=== PATIENT | male | born 1960 | race African-American/Black ===

== ENCOUNTER 2020-08-02 10:37 | Inpatient (IN) | payer MEDICAID, OTHER ==
[~2020-08-02] VITALS: Ht 172.7 cm; Wt 77.3 kg
[2020-08-02] MEDS ORDERED: SODIUM CHLORIDE 0.9% 500 ML IV ONE (11:15)
[2020-08-02 11:21] LABS: Basophils # (auto) 0.1 10 ^3/uL (0-0.2); Hemoglobin 7.9 g/dL (13.5-17.5); Monocytes # (auto) 0.7 10 ^3/uL (0-1.3); Monocytes % (auto) 8.5 % (0.0-12.0)
[2020-08-02 11:23] LABS: Basophils % (auto) 0.8 % (0.0-2.0); Eosinophils # (auto) 0.2 10 ^3/uL (0-0.8); Eosinophils % (auto) 2.1 % (0.0-7.0); Hematocrit 23.9 % (41.0-53.0); Lymphocytes # (auto) 1.2 10 ^3/uL (0.4-5.4); Lymphocytes % (auto) 15.7 % (10.0-50.0); Mean Corpuscular Hemoglobin 26.7 pg (28.0-32.0); Mean Corpuscular Hgb Conc. 32.9 g/dL (32.0-36.0); Mean Corpuscular Volume 81.2 fL (80.0-100.0); Neutrophils # (auto) 5.8 10 ^3/uL (1.6-8.6); Neutrophils % (auto) 72.9 % (37.0-80.0); Platelet Count (auto) 258 10^3/uL (140-450); Red Blood Cells 2.95 10^6/uL (4.5-5.90); Red Cell Distribution Width 16.3 % (11.8-14.3); White Blood Cell 7.9 10^3/uL (4.4-10.8)
[2020-08-02 11:42] LABS: Alanine Aminotransferase 44 U/L (16-61); Albumin 2.4 g/dL (3.4-5.0); Anion Gap 7 (5-15); Blood Urea Nitrogen 47 mg/dL (7-18); Calcium 7.2 mg/dL (8.5-10.1); Carbon Dioxide 24 mmol/L (21-32); Chloride 109 mmol/L (98-107); Glucose 157 mg/dL (74-106); Magnesium 1.9 mg/dL (1.6-2.6); Potassium 4.9 mmol/L (3.5-5.1); Sodium 140 mmol/L (136-145)
[2020-08-02 11:48] LABS: Alkaline Phosphatase 88 U/L (45-117); Aspartate Aminotransferase 28 U/L (15-37); BUN/Creatinine Ratio 14.2; Bilirubin, Total 0.2 mg/dL (0.2-1.0); GFR African American 25 mL/min; GFR Non-African American 20 mL/min; Total Protein 7.7 g/dL (6.4-8.2)
[2020-08-02 12:41] LABS: Urine Bacteria NONE SEEN /hpf (None Seen); Urine Blood Negative /uL (Negative); Urine Hyaline Cast FEW /lpf (0 - 2); Urine WBC 2 /hpf (0 - 3)
[2020-08-02] MEDS ORDERED: NITROGLYCERIN 0.4 MG SL TAB SL PRN (14:15)
[2020-08-02] MEDS ORDERED: MORPHINE SULF INJ 2 MG/ML SYRINGE 1ML IV PRN (14:15)
[2020-08-02] MEDS ORDERED: BUMETANIDE 2.5mg/10ml (0.25 mg/ml) INJ IV ONE (14:15)
[2020-08-02] MEDS ORDERED: metOLazone 5 MG TAB PO ONE (14:15)
[2020-08-02] MEDS ORDERED: DEXTROSE (50%) 50ML SYRG IV PRN (14:15)
[2020-08-02] MEDS: InsuLIN REG 1unit/0.01ml Soln (100units/ml) SC SCH ×2 (17:00→21:20)
[2020-08-02] MEDS: ACCU-CHEK COMFORT CURVE STRIP VI SCH ×2 (17:16→21:20)
[2020-08-02] MEDS: METOPROLOL TARTRATE 25 MG TAB PO SCH ×2 (21:20→22:20)
[2020-08-03 00:14] VITALS: BP 129/72
[2020-08-03 05:00] VITALS: BP 145/79
[2020-08-03] MEDS: ACCU-CHEK COMFORT CURVE STRIP VI SCH ×4 (06:23→21:35)
[2020-08-03] MEDS: InsuLIN REG 1unit/0.01ml Soln (100units/ml) SC SCH ×4 (06:23→21:35)
[2020-08-03 08:40] VITALS: BP 143/88
[2020-08-03] MEDS: metOLazone 5 MG TAB PO SCH (10:00)
[2020-08-03] MEDS: BUMETANIDE 2.5mg/10ml (0.25 mg/ml) INJ IV SCH (10:00)
[2020-08-03 10:08] LABS: Albumin 2.4 g/dL (3.4-5.0); Calcium 7.2 mg/dL (8.5-10.1); Potassium 4.4 mmol/L (3.5-5.1)
[2020-08-03] MEDS: METOPROLOL TARTRATE 25 MG TAB PO SCH ×2 (10:08→22:07)
[2020-08-03 10:10] LABS: Basophils # (auto) 0.1 10 ^3/uL (0-0.2); Eosinophils # (auto) 0.2 10 ^3/uL (0-0.8); Lymphocytes % (auto) 13.9 % (10.0-50.0); Platelet Count (auto) 251 10^3/uL (140-450)
[2020-08-03 10:13] LABS: Eosinophils % (auto) 2.2 % (0.0-7.0); Hematocrit 24.3 % (41.0-53.0); Mean Corpuscular Hemoglobin 26.8 pg (28.0-32.0); Mean Corpuscular Hgb Conc. 33.1 g/dL (32.0-36.0); Monocytes # (auto) 0.7 10 ^3/uL (0-1.3); Monocytes % (auto) 9.1 % (0.0-12.0); Neutrophils # (auto) 5.5 10 ^3/uL (1.6-8.6); Neutrophils % (auto) 73.8 % (37.0-80.0); Red Cell Distribution Width 16.5 % (11.8-14.3); White Blood Cell 7.4 10^3/uL (4.4-10.8)
[2020-08-03 10:14] LABS: BUN/Creatinine Ratio 14.5; Bilirubin, Total 0.2 mg/dL (0.2-1.0); Total Protein 7.7 g/dL (6.4-8.2)
[2020-08-03 12:14] LABS: Free T3 1.56 pg/mL (2.3-4.2); Free T4 (Free Thyroxine) 1.03 ng/dL (0.89-1.76)
[2020-08-03 12:16] LABS: Alcohol, Urine < 3.0 mg/dL (0-10); Amphetamine Screen, Urine NEGATIVE (NEGATIVE); Barbiturate Scree,Urine NEGATIVE (NEGATIVE); Benzodiazephine Screen, Urine NEGATIVE (NEGATIVE); Cannabinoid Screen, Urine NEGATIVE (NEGATIVE); Cocaine Screen, Urine NEGATIVE (NEGATIVE); Opiate Scree,Urine NEGATIVE (NEGATIVE); Phencyclidine Screen, Urine NEGATIVE (NEGATIVE)
[2020-08-03 13:00] VITALS: BP 148/98
[2020-08-03 17:13] VITALS: BP 146/89
[2020-08-03 23:23] VITALS: BP 146/87
[2020-08-04 05:56] VITALS: BP 153/65
[2020-08-04] MEDS: InsuLIN REG 1unit/0.01ml Soln (100units/ml) SC SCH ×4 (06:20→21:23)
[2020-08-04] MEDS: ACCU-CHEK COMFORT CURVE STRIP VI SCH ×4 (06:20→21:22)
[2020-08-04 08:49] VITALS: BP 153/92
[2020-08-04 09:26] LABS: Albumin 2.3 g/dL (3.4-5.0); Calcium 7.2 mg/dL (8.5-10.1); Potassium 4.7 mmol/L (3.5-5.1)
[2020-08-04 09:31] LABS: BUN/Creatinine Ratio 13.3; Bilirubin, Total 0.3 mg/dL (0.2-1.0); Total Protein 7.5 g/dL (6.4-8.2)
[2020-08-04] MEDS: BUMETANIDE 2.5mg/10ml (0.25 mg/ml) INJ IV SCH (10:28)
[2020-08-04] MEDS: METOPROLOL TARTRATE 25 MG TAB PO SCH ×2 (10:29→21:18)
[2020-08-04] MEDS: metOLazone 5 MG TAB PO SCH (10:29)
[2020-08-04 12:33] VITALS: BP 155/92
[2020-08-04] MEDS ORDERED: KAY60LQ PO (13:29)
[2020-08-04] MEDS ORDERED: ISOS60TA24 PO (13:29)
[2020-08-04] MEDS ORDERED: FER325T PO (13:29)
[2020-08-04] MEDS ORDERED: SERT-160 PO (13:29)
[2020-08-04] MEDS ORDERED: HYDR-4298 PO (13:29)
[2020-08-04] MEDS ORDERED: BENA40TA8 PO (13:29)
[2020-08-04] MEDS ORDERED: ATOR-47 PO (13:29)
[2020-08-04] MEDS ORDERED: CALC500C3 PO (13:29)
[2020-08-04] MEDS ORDERED: DULA1INJ SC (13:29)
[2020-08-04] MEDS ORDERED: ASPI-231 PO (13:29)
[2020-08-04] MEDS ORDERED: CHOL20007 PO (13:29)
[2020-08-04] MEDS ORDERED: BUME2TAB5 PO (13:29)
[2020-08-04] MEDS ORDERED: MAGN400T40 PO (13:29)
[2020-08-04] MEDS ORDERED: NIFE1TAB31 PO (13:29)
[2020-08-04] MEDS ORDERED: CARV25TA55 PO (13:29)
[2020-08-04] MEDS ORDERED: SODI650T PO (13:29)
[2020-08-04] MEDS ORDERED: SODIPOW32 PO (13:29)
[2020-08-04 17:29] VITALS: BP 161/92
[2020-08-04 22:00] VITALS: BP 151/85
[2020-08-05 05:00] VITALS: BP 143/80
[2020-08-05] MEDS: InsuLIN REG 1unit/0.01ml Soln (100units/ml) SC SCH ×4 (06:30→22:00)
[2020-08-05] MEDS: LEVOTHYROXINE SODIUM 88 MCG TAB PO SCH (06:30)
[2020-08-05] MEDS: ACCU-CHEK COMFORT CURVE STRIP VI SCH ×4 (06:30→22:23)
[2020-08-05 09:00] VITALS: BP 148/81
[2020-08-05] MEDS: BUMETANIDE 2.5mg/10ml (0.25 mg/ml) INJ IV SCH (10:19)
[2020-08-05] MEDS: metOLazone 5 MG TAB PO SCH (10:20)
[2020-08-05] MEDS: METOPROLOL TARTRATE 25 MG TAB PO SCH ×2 (10:20→22:23)
[2020-08-05 11:06] LABS: Urine Bacteria NONE SEEN /hpf (None Seen); Urine Blood TRACE /uL (Negative); Urine Specific Gravity 1.009 (1.001-1.035); Urine WBC <1 /hpf (0 - 3)
[2020-08-05 11:33] LABS: Protein, Urine 78.3 mg/dL (0.0-11.9)
[2020-08-05 13:00] VITALS: BP 154/90
[2020-08-05 17:15] VITALS: BP 159/96
[2020-08-05 22:00] VITALS: BP 157/88
[2020-08-06 05:00] VITALS: BP 140/80
[2020-08-06] MEDS: InsuLIN REG 1unit/0.01ml Soln (100units/ml) SC SCH ×2 (06:12→11:30)
[2020-08-06] MEDS: LEVOTHYROXINE SODIUM 88 MCG TAB PO SCH (06:12)
[2020-08-06] MEDS: ACCU-CHEK COMFORT CURVE STRIP VI SCH ×2 (06:12→12:33)
[2020-08-06 08:31] LABS: Calcium 7.6 mg/dL (8.5-10.1); Potassium 4.7 mmol/L (3.5-5.1)
[2020-08-06 08:33] LABS: BUN/Creatinine Ratio 17.8
[2020-08-06 09:00] VITALS: BP 151/82
[2020-08-06] MEDS: METOPROLOL TARTRATE 25 MG TAB PO SCH (10:49)
[2020-08-06] MEDS: BUMETANIDE 2.5mg/10ml (0.25 mg/ml) INJ IV SCH (10:49)
[2020-08-06] MEDS: metOLazone 5 MG TAB PO SCH (10:50)
[2020-08-06 13:00] VITALS: BP 151/86
[2020-08-06 17:04] VITALS: BP 142/80
[2020-08-07 14:58] LABS: Hepatitis A Ab IgM Negative
[2020-08-07 14:59] LABS: Hepatitis B Surface Antigen Negative (Negative)
[2020-08-07 15:00] LABS: Hepatitis B Core IgM Negative; Hepatitis C Antibody Negative (Negative)
== END 2020-08-06 18:38 | disposition home or self-care (01) | DRG 194 ==
LOC: ER 10:37 → EDBD 10:37 → TELE 14:02 → TELE-CENTR 20:38
PROVIDERS: ADMIT Nurse Practitioner Acute Care; ATTEND Family Medicine
DX: I13.0 Hypertensive heart and chronic kidney disease with heart failure and stage 1 through stage 4 chronic kidney disease, or unspecified chronic kidney disease (principal); N17.9 Acute kidney failure, unspecified; E44.0 Moderate protein-calorie malnutrition; E11.22 Type 2 diabetes mellitus with diabetic chronic kidney disease; N18.4 Chronic kidney disease, stage 4 (severe); I50.23 Acute on chronic systolic (congestive) heart failure; Z20.822 Contact with and (suspected) exposure to COVID-19; D63.8 Anemia in other chronic diseases classified elsewhere; E03.9 Hypothyroidism, unspecified; R09.89 Other specified symptoms and signs involving the circulatory and respiratory systems; E78.5 Hyperlipidemia, unspecified; Z68.26 Body mass index [BMI] 26.0-26.9, adult; Z79.899 Other long term (current) drug therapy; Z95.810 Presence of automatic (implantable) cardiac defibrillator; Z79.4 Long term (current) use of insulin; Z82.49 Family history of ischemic heart disease and other diseases of the circulatory system; Z83.3 Family history of diabetes mellitus
CPT/HCPCS: 36415; 70450; 71045; 76775; 80048; 80053; 80074; 80307; 81001; 82570; 82962; 83036; 83735; 83880; 84156; 84439; 84443; 84481; 84484; 85025; 86703; 87081; 87426; 93005; 93306; 96360; 97110; 97116; 97163; 97530; G0378

== ENCOUNTER 2020-08-06 19:01 | Inpatient (IN) | payer MEDICAID ==
[~2020-08-06] VITALS: Ht 175.3 cm; Wt 74.1 kg
[~2020-08-06 19:01] MED LIST: ASPI1TAB20 PO; ATOR-47 PO; BENA40TA8 PO; BUME2TAB5 PO; CALC500C3 PO; CARV25TA55 PO; CHOL20007 PO; DULA1INJ SC; FER325T PO; HYDR-4298 PO; ISOS60TA24 PO; KAY60LQ PO; MAGN400T40 PO; NIFE1TAB31 PO; SERT-160 PO; SODI650T PO; SODIPOW32 PO
[2020-08-06] MEDS ORDERED: NALOXONE HCL 0.4 MG/ML VIAL ONE (19:11)
[2020-08-06] MEDS ORDERED: NALOXONE HCL 1MG/ML 2ML SYRINGE ONE (19:11)
[2020-08-06] MEDS ORDERED: NALOXONE HCL 1MG/ML 2ML SYRINGE IV ONE (19:30)
[2020-08-06 19:56] LABS: Basophils # (auto) 0.1 10 ^3/uL (0-0.2); Basophils % (auto) 0.9 % (0.0-2.0); Eosinophils # (auto) 0.3 10 ^3/uL (0-0.8); Eosinophils % (auto) 3.3 % (0.0-7.0); Hematocrit 27.2 % (41.0-53.0); Lymphocytes # (auto) 1.7 10 ^3/uL (0.4-5.4); Lymphocytes % (auto) 20.4 % (10.0-50.0); Mean Corpuscular Hemoglobin 26.8 pg (28.0-32.0); Mean Corpuscular Volume 81.1 fL (80.0-100.0); Monocytes # (auto) 0.7 10 ^3/uL (0-1.3); Neutrophils # (auto) 5.4 10 ^3/uL (1.6-8.6); Neutrophils % (auto) 66.4 % (37.0-80.0); Red Blood Cells 3.35 10^6/uL (4.5-5.90); Red Cell Distribution Width 16.1 % (11.8-14.3); White Blood Cell 8.1 10^3/uL (4.4-10.8)
[2020-08-06 20:11] LABS: INR 1.02 (0.9-1.15)
[2020-08-06 20:12] LABS: Albumin 2.5 g/dL (3.4-5.0); Anion Gap 6 (5-15); Blood Urea Nitrogen 45 mg/dL (7-18); Calcium 7.2 mg/dL (8.5-10.1); Carbon Dioxide 28 mmol/L (21-32); Chloride 102 mmol/L (98-107); Glucose 130 mg/dL (74-106); Lipase 108 U/L (73-393); Magnesium 1.8 mg/dL (1.6-2.6); Sodium 136 mmol/L (136-145)
[2020-08-06 20:19] LABS: Alanine Aminotransferase 30 U/L (16-61); Alkaline Phosphatase 88 U/L (45-117); Aspartate Aminotransferase 25 U/L (15-37); Bilirubin, Total 0.2 mg/dL (0.2-1.0); GFR African American 30 mL/min; GFR Non-African American 25 mL/min; Phosphorus 3.8 mg/dL (2.5-4.90); Total Protein 8.3 g/dL (6.4-8.2)
[2020-08-06] MEDS ORDERED: FUROSEMIDE 20 MG/2 ML VIAL IV ONE (22:45)
[2020-08-06] MEDS ORDERED: ACETAMINOPHEN 325 MG TAB PO PRN (23:15)
[2020-08-06] MEDS ORDERED: ONDANSETRON HCL 4 MG/2 ML VIAL IV PRN (23:15)
[2020-08-06] MEDS ORDERED: NITROGLYCERIN 0.4 MG SL TAB SL PRN (23:15)
[2020-08-06] MEDS ORDERED: DEXTROSE (50%) 50ML SYRG IV PRN (23:15)
[2020-08-06] MEDS ORDERED: MORPHINE SULFATE INJECTION 2 MG/ML SYRG IV PRN (23:15)
[2020-08-06 23:59] LABS: Urine Bacteria FEW /hpf (None Seen); Urine Blood TRACE /uL (Negative); Urine Mucus FEW (None Seen); Urine WBC 1 /hpf (0 - 3)
[2020-08-07] VITALS (8 sets, daily range): BP systolic 99–164; BP diastolic 55–94
[2020-08-07 00:14] LABS: Alcohol, Urine < 3.0 mg/dL (0-10); Amphetamine Screen, Urine NEGATIVE (NEGATIVE); Barbiturate Scree,Urine NEGATIVE (NEGATIVE); Benzodiazephine Screen, Urine NEGATIVE (NEGATIVE); Cannabinoid Screen, Urine NEGATIVE (NEGATIVE); Cocaine Screen, Urine NEGATIVE (NEGATIVE); Opiate Scree,Urine NEGATIVE (NEGATIVE); Phencyclidine Screen, Urine NEGATIVE (NEGATIVE)
[2020-08-07] MEDS ORDERED: cloNIDine HCL 0.1 MG TAB PO PRN (02:30)
[2020-08-07 05:51] LABS: Basophils # (auto) 0.1 10 ^3/uL (0-0.2); Basophils % (auto) 1.2 % (0.0-2.0); Eosinophils # (auto) 0.2 10 ^3/uL (0-0.8); Hematocrit 26.8 % (41.0-53.0); Lymphocytes # (auto) 1.1 10 ^3/uL (0.4-5.4); Lymphocytes % (auto) 19.5 % (10.0-50.0); Mean Corpuscular Hemoglobin 27.1 pg (28.0-32.0); Mean Corpuscular Hgb Conc. 33.5 g/dL (32.0-36.0); Mean Corpuscular Volume 80.8 fL (80.0-100.0); Monocytes # (auto) 0.6 10 ^3/uL (0-1.3); Monocytes % (auto) 10.5 % (0.0-12.0); Neutrophils # (auto) 3.7 10 ^3/uL (1.6-8.6); Neutrophils % (auto) 65.8 % (37.0-80.0); Nucleated Red Blood Cells % 0.1 %; Red Blood Cells 3.32 10^6/uL (4.5-5.90); Red Cell Distribution Width 16.1 % (11.8-14.3); White Blood Cell 5.6 10^3/uL (4.4-10.8)
[2020-08-07] MEDS: SODIUM BICARBONATE 650 MG TAB PO SCH ×3 (06:00→21:39)
[2020-08-07 06:10] LABS: Albumin 2.3 g/dL (3.4-5.0); Calcium 7.3 mg/dL (8.5-10.1); Potassium 4.2 mmol/L (3.5-5.1)
[2020-08-07 06:16] LABS: BUN/Creatinine Ratio 17.8; Bilirubin, Total 0.3 mg/dL (0.2-1.0); Total Protein 7.4 g/dL (6.4-8.2)
[2020-08-07] MEDS: InsuLIN REG 1unit/0.01ml Soln (100units/ml) SC SCH ×4 (07:00→22:08)
[2020-08-07] MEDS: ACCU-CHEK COMFORT CURVE STRIP VI SCH ×4 (07:10→22:00)
[2020-08-07] MEDS: ISOSORBIDE MONONITRATE ER 60 MG TAB PO SCH (09:58)
[2020-08-07] MEDS: ASPirin 81 mg TAB PO SCH (09:58)
[2020-08-07] MEDS: FUROSEMIDE 40 MG TAB PO SCH (09:58)
[2020-08-07] MEDS: PANTOPRAZOLE 40 MG TAB PO SCH (09:58)
[2020-08-07] MEDS: CARVEDILOL 12.5 MG TAB PO SCH ×2 (09:59→21:40)
[2020-08-07] MEDS: ATORVASTATIN 20 MG TAB PO SCH (21:39)
[2020-08-08 05:09] VITALS: BP_SYST 127
[2020-08-08] MEDS: ACCU-CHEK COMFORT CURVE STRIP VI SCH ×4 (06:31→21:37)
[2020-08-08] MEDS: InsuLIN REG 1unit/0.01ml Soln (100units/ml) SC SCH ×4 (06:31→21:37)
[2020-08-08] MEDS: SODIUM BICARBONATE 650 MG TAB PO SCH ×3 (06:32→21:35)
[2020-08-08 08:30] VITALS: BP 124/76
[2020-08-08] MEDS: FUROSEMIDE 40 MG TAB PO SCH (09:04)
[2020-08-08] MEDS: CARVEDILOL 12.5 MG TAB PO SCH ×2 (09:04→21:36)
[2020-08-08] MEDS: PANTOPRAZOLE 40 MG TAB PO SCH (09:04)
[2020-08-08] MEDS: ASPirin 81 mg TAB PO SCH (09:04)
[2020-08-08] MEDS: ISOSORBIDE MONONITRATE ER 60 MG TAB PO SCH (09:05)
[2020-08-08 09:48] VITALS: BP 124/76
[2020-08-08 12:49] VITALS: BP 133/79
[2020-08-08 17:03] VITALS: BP 101/62
[2020-08-08] MEDS: ATORVASTATIN 20 MG TAB PO SCH (21:36)
[2020-08-08 22:00] VITALS: BP 103/56
[2020-08-09 05:00] VITALS: BP 121/70
[2020-08-09] MEDS: InsuLIN REG 1unit/0.01ml Soln (100units/ml) SC SCH ×4 (05:20→22:17)
[2020-08-09] MEDS: ACCU-CHEK COMFORT CURVE STRIP VI SCH ×4 (05:21→21:22)
[2020-08-09] MEDS: SODIUM BICARBONATE 650 MG TAB PO SCH ×3 (05:22→21:21)
[2020-08-09 08:00] VITALS: BP 134/79
[2020-08-09 09:08] VITALS: BP 134/79
[2020-08-09] MEDS: FUROSEMIDE 40 MG TAB PO SCH (09:39)
[2020-08-09] MEDS: ISOSORBIDE MONONITRATE ER 60 MG TAB PO SCH (09:40)
[2020-08-09] MEDS: CARVEDILOL 12.5 MG TAB PO SCH ×2 (09:40→21:22)
[2020-08-09] MEDS: ASPirin 81 mg TAB PO SCH (09:40)
[2020-08-09 12:55] VITALS: BP 141/85
[2020-08-09 16:45] VITALS: BP 114/71
[2020-08-09] MEDS: ATORVASTATIN 20 MG TAB PO SCH (21:21)
[2020-08-09 22:00] VITALS: BP 123/72
[2020-08-09] MEDS ORDERED: LORazepam 2MG/ML-1ML VIAL IV PRN (22:00)
[2020-08-10 05:00] VITALS: BP 129/75
[2020-08-10] MEDS: SODIUM BICARBONATE 650 MG TAB PO SCH ×3 (06:00→23:10)
[2020-08-10] MEDS: ACCU-CHEK COMFORT CURVE STRIP VI SCH ×4 (06:01→23:12)
[2020-08-10] MEDS: InsuLIN REG 1unit/0.01ml Soln (100units/ml) SC SCH ×4 (06:01→23:12)
[2020-08-10] MEDS: ISOSORBIDE MONONITRATE ER 60 MG TAB PO SCH (09:03)
[2020-08-10] MEDS: CARVEDILOL 12.5 MG TAB PO SCH ×2 (09:03→23:11)
[2020-08-10] MEDS: FUROSEMIDE 40 MG TAB PO SCH (09:03)
[2020-08-10] MEDS: ASPirin 81 mg TAB PO SCH (09:03)
[2020-08-10 09:06] VITALS: BP 150/81
[2020-08-10 12:02] LABS: Folate (Folic Acid) 11.97 ng/mL (5.38-24)
[2020-08-10 13:00] VITALS: BP 131/76
[2020-08-10 16:30] VITALS: BP 129/73
[2020-08-10 22:00] VITALS: BP 139/76
[2020-08-10] MEDS: ATORVASTATIN 20 MG TAB PO SCH (23:11)
[2020-08-11 05:00] VITALS: BP 144/82
[2020-08-11] MEDS: InsuLIN REG 1unit/0.01ml Soln (100units/ml) SC SCH ×2 (06:07→11:41)
[2020-08-11] MEDS: SODIUM BICARBONATE 650 MG TAB PO SCH (06:44)
[2020-08-11] MEDS: ACCU-CHEK COMFORT CURVE STRIP VI SCH ×2 (06:52→11:39)
[2020-08-11 08:40] VITALS: BP 138/69
[2020-08-11] MEDS: FUROSEMIDE 40 MG TAB PO SCH (09:58)
[2020-08-11] MEDS: ASPirin 81 mg TAB PO SCH (09:58)
[2020-08-11] MEDS: CARVEDILOL 12.5 MG TAB PO SCH (10:07)
[2020-08-11] MEDS: ISOSORBIDE MONONITRATE ER 60 MG TAB PO SCH (10:09)
[2020-08-11 10:24] VITALS: BP 138/69
[2020-08-11 10:30] VITALS: BP 138/69
[2020-08-11 12:39] VITALS: BP 153/78
== END 2020-08-11 13:00 | disposition home or self-care (01) | DRG 194 ==
LOC: ER 19:04 → TELE 23:12 → TELE-WESTW 23:52
PROVIDERS: ADMIT Nurse Practitioner; ATTEND Family Medicine
DX: I13.0 Hypertensive heart and chronic kidney disease with heart failure and stage 1 through stage 4 chronic kidney disease, or unspecified chronic kidney disease (principal); G93.41 Metabolic encephalopathy; E44.0 Moderate protein-calorie malnutrition; E11.22 Type 2 diabetes mellitus with diabetic chronic kidney disease; N18.4 Chronic kidney disease, stage 4 (severe); G40.209 Localization-related (focal) (partial) symptomatic epilepsy and epileptic syndromes with complex partial seizures, not intractable, without status epilepticus; D63.8 Anemia in other chronic diseases classified elsewhere; E03.9 Hypothyroidism, unspecified; E78.5 Hyperlipidemia, unspecified; Z79.4 Long term (current) use of insulin; Z82.49 Family history of ischemic heart disease and other diseases of the circulatory system; Z83.3 Family history of diabetes mellitus; Z95.810 Presence of automatic (implantable) cardiac defibrillator; I50.23 Acute on chronic systolic (congestive) heart failure; Z20.822 Contact with and (suspected) exposure to COVID-19
CPT/HCPCS: 36415; 70450; 71045; 80053; 80307; 80320; 81001; 82607; 82746; 82962; 83605; 83690; 83735; 83880; 84100; 84484; 85025; 85610; 87040; 87081; 87426; 93005; 95819; 99291; G0378; J1815

== ENCOUNTER 2020-08-15 10:27 | Inpatient (IN) | payer MEDICAID ==
[~2020-08-15] VITALS: Ht 170.2 cm; Wt 67.3 kg
[2020-08-15] MEDS ORDERED: SODIUM CHLORIDE 0.9% 1,000 ML IV ONE (10:45)
[2020-08-15 11:38] LABS: Basophils # (auto) 0.1 10 ^3/uL (0-0.2); Hemoglobin 10.8 g/dL (13.5-17.5); Lymphocytes # (auto) 0.8 10 ^3/uL (0.4-5.4); Monocytes # (auto) 0.6 10 ^3/uL (0-1.3); Neutrophils # (auto) 8.4 10 ^3/uL (1.6-8.6); Red Cell Distribution Width 16.4 % (11.8-14.3); White Blood Cell 9.9 10^3/uL (4.4-10.8)
[2020-08-15 11:40] LABS: Basophils % (auto) 0.9 % (0.0-2.0); Eosinophils # (auto) 0 10 ^3/uL (0-0.8); Eosinophils % (auto) 0.4 % (0.0-7.0); Hematocrit 34.1 % (41.0-53.0); Mean Corpuscular Hemoglobin 26.2 pg (28.0-32.0); Mean Corpuscular Hgb Conc. 31.7 g/dL (32.0-36.0); Mean Corpuscular Volume 82.7 fL (80.0-100.0); Monocytes % (auto) 6.3 % (0.0-12.0); Neutrophils % (auto) 84.4 % (37.0-80.0); Nucleated Red Blood Cells % 0.1 %; Red Blood Cells 4.12 10^6/uL (4.5-5.90)
[2020-08-15 11:51] LABS: Albumin 3.1 g/dL (3.4-5.0); Anion Gap 7 (5-15); Calcium 8.7 mg/dL (8.5-10.1); Carbon Dioxide 33 mmol/L (21-32); Chloride 101 mmol/L (98-107); Glucose 223 mg/dL (74-106); Sodium 141 mmol/L (136-145)
[2020-08-15 11:57] LABS: Alanine Aminotransferase 34 U/L (16-61); Alkaline Phosphatase 92 U/L (45-117); Aspartate Aminotransferase 31 U/L (15-37); BUN/Creatinine Ratio 23.4; Bilirubin, Total 0.3 mg/dL (0.2-1.0); GFR African American 21 mL/min; GFR Non-African American 17 mL/min; Total Protein 9.4 g/dL (6.4-8.2)
[2020-08-15 12:04] LABS: Blood Urea Nitrogen 90 mg/dL (7-18)
[2020-08-15] MEDS ORDERED: cloNIDine HCL 0.1 MG TAB PO ONE (13:15)
[2020-08-15] MEDS ORDERED: amLODIPine BESYLATE 5 MG TAB PO ONE (14:15)
[2020-08-15] MEDS ORDERED: ALBUMIN 5% 250 ML IV ONE (14:15)
[2020-08-15 14:43] LABS: Urine Bacteria NONE SEEN /hpf (None Seen); Urine Blood Negative /uL (Negative); Urine Specific Gravity 1.011 (1.001-1.035); Urine WBC <1 /hpf (0 - 3)
[2020-08-15] MEDS ORDERED: ONDANSETRON HCL 4 MG/2 ML VIAL IV PRN (15:00)
[2020-08-15] MEDS ORDERED: ACETAMINOPHEN 500 MG TAB PO PRN (15:00)
[2020-08-15] MEDS ORDERED: HYDROcodone-ACET 5/325MG TAB PO PRN (15:00)
[2020-08-15] MEDS ORDERED: MORPHINE SULFATE INJECTION 2 MG/ML SYRG IV PRN ×2 (15:00)
[2020-08-15] MEDS ORDERED: DEXTROSE (50%) 50ML SYRG IV PRN (15:00)
[2020-08-15] MEDS ORDERED: NITROGLYCERIN 0.4 MG SL TAB SL PRN (15:00)
[2020-08-15] MEDS ORDERED: hydrALAZINE HCL 20 MG/ML VL IV PRN (15:15)
[2020-08-15] MEDS: SOD CHL 0.45% 1,000 ML IV SCH (16:13)
[2020-08-15] MEDS: ACCU-CHEK COMFORT CURVE STRIP VI SCH ×2 (17:28→22:28)
[2020-08-15 17:37] LABS: Phosphorus 4.3 mg/dL (2.5-4.90); Uric Acid 10.1 mg/dL (3.5-7.2)
[2020-08-15] MEDS: InsuLIN REG 1unit/0.01ml Soln (100units/ml) SC SCH ×2 (18:05→22:31)
[2020-08-15] MEDS: ATORVASTATIN 20 MG TAB PO SCH (22:32)
[2020-08-15] MEDS: CARVEDILOL 12.5 MG TAB PO SCH (22:33)
[2020-08-15 23:30] VITALS: BP 125/72
[2020-08-15 23:41] VITALS: BP 139/78
[2020-08-16] MEDS: SOD CHL 0.45% 1,000 ML IV SCH ×2 (04:20→21:18)
[2020-08-16 05:38] VITALS: BP 148/82
[2020-08-16] MEDS: InsuLIN REG 1unit/0.01ml Soln (100units/ml) SC SCH ×4 (06:07→21:42)
[2020-08-16] MEDS: ACCU-CHEK COMFORT CURVE STRIP VI SCH ×4 (06:07→21:18)
[2020-08-16 06:23] LABS: Basophils # (auto) 0 10 ^3/uL (0-0.2); Basophils % (auto) 0.6 % (0.0-2.0); Eosinophils # (auto) 0.1 10 ^3/uL (0-0.8); Eosinophils % (auto) 1.2 % (0.0-7.0); Hematocrit 31.3 % (41.0-53.0); Hemoglobin 10.1 g/dL (13.5-17.5); Lymphocytes % (auto) 13.1 % (10.0-50.0); Mean Corpuscular Hemoglobin 26.6 pg (28.0-32.0); Mean Corpuscular Hgb Conc. 32.5 g/dL (32.0-36.0); Mean Corpuscular Volume 81.8 fL (80.0-100.0); Monocytes # (auto) 0.6 10 ^3/uL (0-1.3); Monocytes % (auto) 8.1 % (0.0-12.0); Neutrophils # (auto) 5.7 10 ^3/uL (1.6-8.6); Red Blood Cells 3.82 10^6/uL (4.5-5.90); Red Cell Distribution Width 16.3 % (11.8-14.3); White Blood Cell 7.4 10^3/uL (4.4-10.8)
[2020-08-16 06:43] LABS: Potassium 3.8 mmol/L (3.5-5.1)
[2020-08-16 06:53] LABS: Albumin 3.1 g/dL (3.4-5.0); BUN/Creatinine Ratio 24.9; Bilirubin, Total 0.6 mg/dL (0.2-1.0); Calcium 8.6 mg/dL (8.5-10.1); Total Protein 8.7 g/dL (6.4-8.2)
[2020-08-16 08:30] VITALS: BP 135/69
[2020-08-16] MEDS: FERROUS SULFATE 325mg EC TAB PO SCH (09:09)
[2020-08-16] MEDS: ASPirin-EC 81 mg tab PO SCH (09:09)
[2020-08-16] MEDS: CARVEDILOL 12.5 MG TAB PO SCH ×2 (09:10→21:22)
[2020-08-16] MEDS: NIFEdipine ER 30 MG TAB PO SCH (09:10)
[2020-08-16] MEDS ORDERED: FAMOTIDINE 20 MG TAB PO SCH (10:00)
[2020-08-16 12:56] VITALS: BP 142/79
[2020-08-16 17:00] VITALS: BP 129/69
[2020-08-16] MEDS: ATORVASTATIN 20 MG TAB PO SCH (21:18)
[2020-08-16 22:00] VITALS: BP 138/72
[2020-08-17] MEDS: InsuLIN REG 1unit/0.01ml Soln (100units/ml) SC SCH ×4 (05:50→21:25)
[2020-08-17] MEDS: SOD CHL 0.45% 1,000 ML IV SCH ×2 (05:50→19:13)
[2020-08-17] MEDS: ACCU-CHEK COMFORT CURVE STRIP VI SCH ×4 (05:51→21:15)
[2020-08-17 06:20] LABS: BUN/Creatinine Ratio 25.8; Calcium 8.1 mg/dL (8.5-10.1); Potassium 3.7 mmol/L (3.5-5.1)
[2020-08-17 09:00] VITALS: BP 136/73
[2020-08-17] MEDS: CARVEDILOL 12.5 MG TAB PO SCH ×2 (10:36→21:14)
[2020-08-17] MEDS: ASPirin-EC 81 mg tab PO SCH (10:36)
[2020-08-17] MEDS: NIFEdipine ER 30 MG TAB PO SCH (10:37)
[2020-08-17] MEDS: FERROUS SULFATE 325mg EC TAB PO SCH (10:38)
[2020-08-17 13:00] VITALS: BP 142/79
[2020-08-17 17:00] VITALS: BP 156/74
[2020-08-17] MEDS: ATORVASTATIN 20 MG TAB PO SCH (21:15)
[2020-08-17 21:57] VITALS: BP 129/64
[2020-08-18 05:00] VITALS: BP 134/69
[2020-08-18] MEDS: InsuLIN REG 1unit/0.01ml Soln (100units/ml) SC SCH ×4 (05:56→22:00)
[2020-08-18] MEDS: ACCU-CHEK COMFORT CURVE STRIP VI SCH ×4 (05:57→22:11)
[2020-08-18 08:00] VITALS: BP 113/64
[2020-08-18] MEDS: FERROUS SULFATE 325mg EC TAB PO SCH (10:02)
[2020-08-18] MEDS: CARVEDILOL 12.5 MG TAB PO SCH ×2 (10:04→22:11)
[2020-08-18] MEDS: NIFEdipine ER 30 MG TAB PO SCH (10:05)
[2020-08-18] MEDS: ASPirin-EC 81 mg tab PO SCH (10:05)
[2020-08-18 11:24] LABS: Calcium 8.1 mg/dL (8.5-10.1); Potassium 4.3 mmol/L (3.5-5.1)
[2020-08-18 11:26] LABS: BUN/Creatinine Ratio 25.3
[2020-08-18 12:00] VITALS: BP 144/78
[2020-08-18 16:00] VITALS: BP 160/77
[2020-08-18 17:00] VITALS: BP 129/67
[2020-08-18] MEDS: ATORVASTATIN 20 MG TAB PO SCH (22:10)
[2020-08-19 00:07] VITALS: BP 136/73
[2020-08-19 05:19] VITALS: BP 137/74
[2020-08-19] MEDS: ACCU-CHEK COMFORT CURVE STRIP VI SCH ×4 (05:58→22:02)
[2020-08-19] MEDS: InsuLIN REG 1unit/0.01ml Soln (100units/ml) SC SCH ×4 (05:58→22:00)
[2020-08-19 07:50] LABS: Calcium 8.1 mg/dL (8.5-10.1); Potassium 4.2 mmol/L (3.5-5.1)
[2020-08-19 07:53] LABS: BUN/Creatinine Ratio 24.3
[2020-08-19 09:00] VITALS: BP 127/63
[2020-08-19] MEDS: NIFEdipine ER 30 MG TAB PO SCH ×2 (10:00→17:44)
[2020-08-19] MEDS: CARVEDILOL 12.5 MG TAB PO SCH ×3 (10:00→22:02)
[2020-08-19] MEDS: FERROUS SULFATE 325mg EC TAB PO SCH (10:37)
[2020-08-19] MEDS: ASPirin-EC 81 mg tab PO SCH (10:37)
[2020-08-19 13:00] VITALS: BP 146/71
[2020-08-19 17:00] VITALS: BP 161/80
[2020-08-19] MEDS: BUMETANIDE 1 MG TAB PO SCH (18:22)
[2020-08-19 22:00] VITALS: BP_SYST 100; BP_SYST 135; BP_SYST 147; BP_DIAS 46; BP_DIAS 70; BP_DIAS 74
[2020-08-19] MEDS ORDERED: MAGNESIUM OXIDE 400 MG TAB PO SCH (22:00)
[2020-08-19] MEDS: ATORVASTATIN 20 MG TAB PO SCH (22:02)
[2020-08-20 05:00] VITALS: BP_SYST 115; BP_SYST 116; BP_SYST 75; BP_DIAS 37; BP_DIAS 64; BP_DIAS 65
[2020-08-20] MEDS: BUMETANIDE 1 MG TAB PO SCH ×2 (05:41→17:35)
[2020-08-20] MEDS: LEVOTHYROXINE SODIUM 100 MCG TAB PO SCH (05:41)
[2020-08-20] MEDS: ACCU-CHEK COMFORT CURVE STRIP VI SCH ×4 (05:41→21:37)
[2020-08-20] MEDS: InsuLIN REG 1unit/0.01ml Soln (100units/ml) SC SCH ×4 (05:41→21:37)
[2020-08-20 07:42] LABS: Basophils # (auto) 0.1 10 ^3/uL (0-0.2); Basophils % (auto) 1.4 % (0.0-2.0); Eosinophils # (auto) 0.2 10 ^3/uL (0-0.8); Eosinophils % (auto) 3.2 % (0.0-7.0); Hemoglobin 10.4 g/dL (13.5-17.5); Lymphocytes # (auto) 1.5 10 ^3/uL (0.4-5.4); Lymphocytes % (auto) 23.4 % (10.0-50.0); Mean Corpuscular Hemoglobin 26.6 pg (28.0-32.0); Mean Corpuscular Hgb Conc. 32.4 g/dL (32.0-36.0); Mean Corpuscular Volume 82.1 fL (80.0-100.0); Monocytes # (auto) 0.6 10 ^3/uL (0-1.3); Monocytes % (auto) 8.9 % (0.0-12.0); Neutrophils # (auto) 3.9 10 ^3/uL (1.6-8.6); Neutrophils % (auto) 63.1 % (37.0-80.0); Red Cell Distribution Width 15.6 % (11.8-14.3); White Blood Cell 6.2 10^3/uL (4.4-10.8)
[2020-08-20 07:56] LABS: Calcium 8.5 mg/dL (8.5-10.1); Chloride 105 mmol/L (98-107); Potassium 4.2 mmol/L (3.5-5.1); Sodium 141 mmol/L (136-145)
[2020-08-20 07:59] LABS: Alanine Aminotransferase 42 U/L (16-61); Anion Gap 6 (5-15); Aspartate Aminotransferase 44 U/L (15-37); BUN/Creatinine Ratio 23.5; Blood Urea Nitrogen 76 mg/dL (7-18); Carbon Dioxide 30 mmol/L (21-32); GFR African American 25 mL/min; GFR Non-African American 21 mL/min; Glucose 79 mg/dL (74-106); Magnesium 3.1 mg/dL (1.6-2.6)
[2020-08-20 08:04] LABS: Albumin 2.8 g/dL (3.4-5.0); Alkaline Phosphatase 91 U/L (45-117); Bilirubin, Total 0.4 mg/dL (0.2-1.0); Total Protein 8.4 g/dL (6.4-8.2)
[2020-08-20 09:00] VITALS: BP 93/54
[2020-08-20] MEDS: NIFEdipine ER 30 MG TAB PO SCH (10:00)
[2020-08-20] MEDS: CARVEDILOL 12.5 MG TAB PO SCH ×2 (10:00→21:37)
[2020-08-20] MEDS: ASPirin-EC 81 mg tab PO SCH (10:12)
[2020-08-20] MEDS: FERROUS SULFATE 325mg EC TAB PO SCH (10:13)
[2020-08-20] MEDS: SERTRALINE HCL 50 MG TAB PO SCH (10:13)
[2020-08-20 13:00] VITALS: BP 102/56
[2020-08-20 17:00] VITALS: BP 116/70
[2020-08-20] MEDS: ATORVASTATIN 20 MG TAB PO SCH (21:36)
[2020-08-20 22:00] VITALS: BP_SYST 126; BP_SYST 132; BP_SYST 93; BP_DIAS 45; BP_DIAS 53; BP_DIAS 59
[2020-08-21 05:00] VITALS: BP_SYST 122; BP_SYST 125; BP_SYST 81; BP_DIAS 57; BP_DIAS 62; BP_DIAS 70
[2020-08-21] MEDS: InsuLIN REG 1unit/0.01ml Soln (100units/ml) SC SCH ×4 (05:58→21:27)
[2020-08-21] MEDS: ACCU-CHEK COMFORT CURVE STRIP VI SCH ×4 (05:58→21:27)
[2020-08-21] MEDS: BUMETANIDE 1 MG TAB PO SCH (05:58)
[2020-08-21] MEDS: LEVOTHYROXINE SODIUM 100 MCG TAB PO SCH (05:58)
[2020-08-21 07:02] LABS: Basophils # (auto) 0.1 10 ^3/uL (0-0.2); Eosinophils # (auto) 0.2 10 ^3/uL (0-0.8); Hematocrit 31.9 % (41.0-53.0); Hemoglobin 10.4 g/dL (13.5-17.5); Lymphocytes # (auto) 1.7 10 ^3/uL (0.4-5.4); Lymphocytes % (auto) 25.3 % (10.0-50.0); Mean Corpuscular Hemoglobin 26.5 pg (28.0-32.0); Mean Corpuscular Hgb Conc. 32.5 g/dL (32.0-36.0); Mean Corpuscular Volume 81.8 fL (80.0-100.0); Monocytes # (auto) 0.6 10 ^3/uL (0-1.3); Monocytes % (auto) 9.1 % (0.0-12.0); Neutrophils # (auto) 4.1 10 ^3/uL (1.6-8.6); Neutrophils % (auto) 61.6 % (37.0-80.0); Nucleated Red Blood Cells % 0.1 %; Red Cell Distribution Width 15.6 % (11.8-14.3); White Blood Cell 6.7 10^3/uL (4.4-10.8)
[2020-08-21 07:12] LABS: Albumin 2.9 g/dL (3.4-5.0); Calcium 7.9 mg/dL (8.5-10.1); Potassium 4.5 mmol/L (3.5-5.1)
[2020-08-21 07:15] LABS: BUN/Creatinine Ratio 22.9; Bilirubin, Total 0.3 mg/dL (0.2-1.0); Total Protein 8.2 g/dL (6.4-8.2)
[2020-08-21 09:00] VITALS: BP 125/68
[2020-08-21] MEDS: FERROUS SULFATE 325mg EC TAB PO SCH (09:29)
[2020-08-21] MEDS: NIFEdipine ER 30 MG TAB PO SCH (09:29)
[2020-08-21] MEDS: SERTRALINE HCL 50 MG TAB PO SCH (09:29)
[2020-08-21] MEDS: ASPirin-EC 81 mg tab PO SCH (09:29)
[2020-08-21] MEDS: CARVEDILOL 12.5 MG TAB PO SCH (09:30)
[2020-08-21 12:15] VITALS: BP_SYST 114; BP_SYST 153; BP_SYST 86; BP_DIAS 54; BP_DIAS 67; BP_DIAS 89
[2020-08-21 14:45] VITALS: BP 132/69
[2020-08-21 17:00] VITALS: BP 107/66
[2020-08-21] MEDS: Glucerna Carbsteady SHAKE Vanilla 8oz PO SCH (17:50)
[2020-08-21] MEDS: CARVEDILOL 3.125 MG TAB PO SCH (21:27)
[2020-08-21] MEDS: ATORVASTATIN 20 MG TAB PO SCH (21:27)
[2020-08-21 22:00] VITALS: BP 139/80
[2020-08-22 05:00] VITALS: BP_SYST 144; BP_SYST 148; BP_DIAS 69; BP_DIAS 71
[2020-08-22] MEDS: LEVOTHYROXINE SODIUM 100 MCG TAB PO SCH (05:51)
[2020-08-22] MEDS: ACCU-CHEK COMFORT CURVE STRIP VI SCH ×2 (05:51→11:07)
[2020-08-22] MEDS: InsuLIN REG 1unit/0.01ml Soln (100units/ml) SC SCH ×2 (05:51→11:07)
[2020-08-22 07:28] LABS: BUN/Creatinine Ratio 24.5; Calcium 8.1 mg/dL (8.5-10.1); Potassium 4.8 mmol/L (3.5-5.1)
[2020-08-22] MEDS: Glucerna Carbsteady SHAKE Vanilla 8oz PO SCH (08:00)
[2020-08-22 08:56] VITALS: BP 155/79
[2020-08-22] MEDS: ASPirin-EC 81 mg tab PO SCH (09:52)
[2020-08-22] MEDS: FERROUS SULFATE 325mg EC TAB PO SCH (09:52)
[2020-08-22] MEDS ORDERED: CAR3125T PO (09:52)
[2020-08-22] MEDS: SERTRALINE HCL 50 MG TAB PO SCH (09:52)
[2020-08-22] MEDS: NIFEdipine ER 30 MG TAB PO SCH (09:53)
[2020-08-22] MEDS: CARVEDILOL 3.125 MG TAB PO SCH (10:00)
[2020-08-22] MEDS ORDERED: CHOLECALCIFEROL (VITD3) 2,000 UNIT CAP/TAB PO SCH (10:00)
== END 2020-08-22 11:45 | disposition home or self-care (01) | DRG 469 ==
LOC: ER 10:27 → TELE 14:50 → TELE-CENTR 22:00
PROVIDERS: ADMIT Nurse Practitioner Acute Care; ATTEND Internal Medicine
DX: N17.0 Acute kidney failure with tubular necrosis (principal); G93.41 Metabolic encephalopathy; E44.0 Moderate protein-calorie malnutrition; I42.9 Cardiomyopathy, unspecified; E11.22 Type 2 diabetes mellitus with diabetic chronic kidney disease; I95.1 Orthostatic hypotension; I50.22 Chronic systolic (congestive) heart failure; I13.0 Hypertensive heart and chronic kidney disease with heart failure and stage 1 through stage 4 chronic kidney disease, or unspecified chronic kidney disease; N18.4 Chronic kidney disease, stage 4 (severe); D63.1 Anemia in chronic kidney disease; E03.9 Hypothyroidism, unspecified; E78.5 Hyperlipidemia, unspecified; F32.9 Major depressive disorder, single episode, unspecified; Z79.82 Long term (current) use of aspirin; Z79.4 Long term (current) use of insulin; Z82.49 Family history of ischemic heart disease and other diseases of the circulatory system; Z83.3 Family history of diabetes mellitus; Z95.810 Presence of automatic (implantable) cardiac defibrillator; Z79.899 Other long term (current) drug therapy; T50.2X5A Adverse effect of carbonic-anhydrase inhibitors, benzothiadiazides and other diuretics, initial encounter; Z20.822 Contact with and (suspected) exposure to COVID-19
CPT/HCPCS: 36415; 36600; 71045; 80048; 80053; 81001; 82306; 82533; 82805; 82962; 83735; 83880; 84100; 84443; 84484; 84550; 85025; 85049; 87081; 87426; 93005; 96360; 97110; 97116; 97530; G0378; J1815